=== PATIENT | female | born 1985 | race Caucasian/White ===

== ENCOUNTER 2019-01-03 04:46 | Emergency (ER) | payer OTHER ==
[2019-01-03] MEDS: Silver Sulfadiazine 1% Crm 400 GM Jar ONE ×2 (05:14→05:22)
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
[2019-01-03] MEDS ORDERED: Diphtheria,Pertussis(Acell),Tetanus Vaccine 0.5 ML SDV ONE (05:52)
[2019-01-03] MEDS ORDERED: Diphtheria,Pertussis(Acell),Tetanus Vaccine 0.5 ML SDV IM ONE (05:54)
[2019-01-03] MEDS ORDERED: Silver Sulfadiazine 1% Crm 400 GM Jar TOP SCH (08:00)
== END 2019-01-03 06:25 | disposition home or self-care (01) ==
LOC: LL.ED 04:46
DX: T65.891A Toxic effect of other specified substances, accidental (unintentional), initial encounter (principal); T23.462A Corrosion of unspecified degree of back of left hand, initial encounter; T23.461A Corrosion of unspecified degree of back of right hand, initial encounter; T23.432A Corrosion of unspecified degree of multiple left fingers (nail), not including thumb, initial encounter; T23.431A Corrosion of unspecified degree of multiple right fingers (nail), not including thumb, initial encounter; T32.0 Corrosions involving less than 10% of body surface; F17.210 Nicotine dependence, cigarettes, uncomplicated; Z88.8 Allergy status to other drugs, medicaments and biological substances; Z91.018 Allergy to other foods; Y92.89 Other specified places as the place of occurrence of the external cause; Y99.0 Civilian activity done for income or pay
CPT/HCPCS: 16020; 90471; 90715; 99283